=== PATIENT | male | born 1980 | race American Indian/Alaskan Native ===

== ENCOUNTER 2017-05-15 19:14 | Observation (INO) | payer MEDICAID, OTHER ==
--- NOTE | 2017-05-15 19:25 | ED PDOC ---
Arrival/HPI - General Time Seen by Provider: 05/15/17 19:21 Historian: Patient - History of Present Illness Narrative History of Present Illness (Text): 05/15/17 19:22 Patient presents with slurring of speech and alcohol on breath. Admits to drinking throughout the day. Pt denies suicidal or homicidal ideations. Denies any trauma or injury. Past Medical History - Provider Review Nursing Documentation Reviewed: Yes - Infectious Disease Hx of Infectious Diseases: None - Cardiac Hx Cardiac Disorders: No Hx Hypertension: No - Pulmonary Hx Tuberculosis: No - Neurological HX Cerebrovascular Accident: No Hx Seizures: No - Hematological/Oncological Hx Cancer: No - Musculoskeletal/Rheumatological Hx Falls: No - Genitourinary/Gynecological Hx Sexually Transmitted Diseases: No - Psychiatric Hx Anxiety: Yes Hx Substance Use: No - Surgical History Hx Open Reduction Internal Fixation: Yes (right hand surgery) - Anesthesia Hx Anesthesia: Yes Hx Anesthesia Reactions: No - Suicidal Assessment Feels Threatened In Home Enviroment: No Family/Social History - Physician Review Nursing Documentation Reviewed: Yes Family/Social History: Unknown Family HX Smoking Status: Heavy Smoker > 10 Cigarettes Daily Hx Alcohol Use: Yes Hx Substance Use: No Substance used: ashly Allergies/Home Meds Allergies/Adverse Reactions: Allergies pollen Allergy (Mild, Uncoded 05/13/17 16:01) Home Medications: Home Meds Medication Instructions Recorded Confirmed No Known Home Med 10/25/16 05/15/17 Review of Systems - Review of Systems Systems not reviewed;Unavailable: Intoxicated Physical Exam - Physical Exam Narrative Physical Exam (Text): Patient is in no distress, no airway compromise, breathing without difficulty, good insp/exp effort. No signs of head/torso/extremity trauma. Following commands without difficulty. Head: Present: Atraumatic, Normocephalic. No: Tenderness, Contusion, Swelling, Ecchymosis, Abrasion, Laceration Pupils: Present: PERRL Extroacular Muscles: Present: EOMI Conjunctiva: Present: Normal Mouth: Present: Moist Mucous Membranes Neck: Present: Normal Range of Motion. No: MIDLINE TENDERNESS, Paraspinal Tenderness Respiratory/Chest: Present: Clear to Auscultation, Good Air Exchange. No: Respiratory Distress, Accessory Muscle Use Cardiovascular: Present: Regular Rate and Rhythm, Normal S1, S2. No: Murmurs Abdomen: Present: Normal Bowel Sounds. No: Tenderness, Distention, Peritoneal Signs, Rebound, Guarding Back: Present: Normal Inspection. No: Midline Tenderness, Paraspinal Tenderness Upper Extremity: Present: Normal Inspection. No: Cyanosis, Edema Lower Extremity: Present: Normal Inspection. No: Edema Neurological: Present: GCS=15, CN II-XII Intact Skin: Present: Warm, Dry, Normal Color. No: Rashes Lymphatic: Present: OX3, NI, NC Psychiatric: Present: Alert. Absent: Agitated, suicidal/homicidal ideations Vital Signs Reviewed: Yes Vital Signs Temp Pulse Resp BP Pulse Ox 05/16/17 06:05 67 17 100/66 98 05/15/17 19:52 98.2 F 97 H 18 128/76 97 Medical Decision Making ED Course and Treatment: 05/15/17 19:22 Impression: A 37 year old intoxicated male. Differential Diagnosis include but are not limited to: alcohol abuse Plan: -- sobriety -- Reassess and disposition - Medication Orders Current Medication Orders: Discontinued Medications Chlordiazepoxide (Librium) 50 mg PO STAT STA PRN Reason: Protocol Stop: 05/15/17 20:00 Last Admin: 05/15/17 20:06 Dose: 50 mg Comments: Diphenhydramine HCl (Benadryl) 50 mg IM STAT STA Stop: 05/15/17 22:00 Last Admin: 05/15/17 22:15 Dose: 50 mg Famotidine (Pepcid) 40 mg PO STAT STA Stop: 05/16/17 02:25 Last Admin: 05/16/17 06:48 Dose: 40 mg Haloperidol Lactate (Haldol) 5 mg IM STAT STA Stop: 05/15/17 22:00 Last Admin: 05/15/17 22:10 Dose: 5 mg Lorazepam (Ativan) 2 mg IM ONCE ONE Stop: 05/15/17 22:00 Last Admin: 05/15/17 22:10 Dose: 2 mg ED OBSERVATION Discharge: Yes Date of observation admission: 05/15/17 Time of observation admission: 19:22 - Observation admission statement Patient is being placed in observation because:: alcohol intoxication - Goals of Observation Goals of observation are:: sobriety - Progress Note Progress Note: 05/15/17 22:17 patient not yet clinically sober attempting to leave the department tried to verbally deescalate situation and also offered pt PO medications pt uncooperative danger to himself restraints and IM medications ordered 05/16/17 06:49 Pt has been closely monitored throughout the stay in the ED. Currently pt is ANOx3 to person, place, and time. Has good insight and judgment. Denies suicidal or homicidal ideations. Pt has steady gait, ambulates without difficulty, not slurring speech. Pt able to tolerate PO without any difficulty. Patient denies any complaints at this time. Patient is not tremulous, not tachycardic, no signs or symptoms of alcohol withdrawal. - Scribe Statement The provider has reviewed the documentation as recorded by the Scribe Richard Lo Provider Scribe Attestation: All medical record entries made by the Miraibsarah were at my direction and personally dictated by me. I have reviewed the chart and agree that the record accurately reflects my personal performance of the history, physical exam, medical decision making, and the department course for this patient. I have also personally directed, reviewed, and agree with the discharge instructions and disposition. Disposition/Present on Arrival - Present on Arrival Any Indicators Present on Arrival: No History of DVT/PE: No History of Uncontrolled Diabetes: No Urinary Catheter: No History Surgical Site Infection Following: None - Disposition Have Diagnosis and Disposition been Completed?: Yes Diagnosis: Alcohol intoxication Disposition: HOME/ ROUTINE Disposition Time: 19:22 Patient Plan: Observation Patient Problems: Current Active Problems Problem Status Onset Alcohol intoxication Acute Condition: GOOD
[2017-05-15 19:26] VITALS: BMI 23.6
[2017-05-15 19:53] VITALS: TEMP 98.2
[2017-05-15] MEDS ORDERED: DiphenhydrAMINE 50 mg/ml Inj IM STA (21:59)
[2017-05-16 06:06] VITALS: BP 100/66; PULSE 67; RESP 17; O2SAT 98
== END 2017-05-16 06:50 | disposition home or self-care (01) ==
LOC: ED 19:14 → EROBSV 19:22
PROVIDERS: ADMIT Emergency Medicine; ATTEND Emergency Medicine
DX: F10.129 Alcohol abuse with intoxication, unspecified (principal)
CPT/HCPCS: 82948; 96372; 99284; G0378; J1200; J1630; J2060